=== PATIENT | female | born 1960 | race Two or more races ===

== ENCOUNTER 2017-10-06 09:28 | Inpatient (IN) | payer BC ==
[2017-10-06] VITALS (12 sets, daily range): BP systolic 126–149; BP diastolic 64–77
[~2017-10-06] VITALS: Ht 162.6 cm; Wt 80.3 kg
[2017-10-06] MEDS ORDERED: Thrombin 5000 units TOPIC ONE (10:22)
[2017-10-06] MEDS ORDERED: Vancomycin 1gm inj IVPB ONE (10:22)
[2017-10-06] MEDS ORDERED: Bacitracin 50000 Units Vial ONE (10:23)
[2017-10-06] MEDS ORDERED: Zemuron 50mg/5ml Inj IV ONE ×2 (10:26→12:00)
[2017-10-06] MEDS ORDERED: EPINEPHrine 1mg/1ml Amp ONE (10:40)
[2017-10-06] MEDS ORDERED: Gelfoam Absorbable 1gm powder pkt TOPIC ONE (10:41)
[2017-10-06] MEDS ORDERED: Bupivacaine 0.5% Inj 30 ml vial INJ ONE (10:41)
[2017-10-06] MEDS ORDERED: Thrombin 5000 units spray kit TOPIC ONE (10:41)
[2017-10-06] MEDS ORDERED: fentaNYL 100 mcg/2 mL IV ONE (10:47)
[2017-10-06] MEDS ORDERED: Lidocaine 1% Plain 30 ml INJ ONE (10:47)
[2017-10-06] MEDS ORDERED: Midazolam 2mg/2ml Inj ONE (10:47)
[2017-10-06] MEDS ORDERED: ESTRACE1 MG ORAL (10:53)
[2017-10-06] MEDS ORDERED: PAMELOR10 MG ORAL (10:54)
[2017-10-06] MEDS ORDERED: OMEPRAZOLE20 M2 ORAL (10:54)
[2017-10-06] MEDS ORDERED: Vit D3 PO (10:57)
[2017-10-06] MEDS ORDERED: ZYRTEC10 MG ORAL (10:58)
[2017-10-06] MEDS ORDERED: GABAPENTIN300 MG ORAL (10:59)
[2017-10-06] MEDS ORDERED: OXYBUTYNIN CHLO10 MG PO (10:59)
[2017-10-06] MEDS ORDERED: CYMBALTA20 MG ORAL (11:03)
--- NOTE | 2017-10-06 11:47 | Anethesia Preoperative Eval ---
Anesthesia Pre-op PMH/ROS General Date of Evaluation: October 06, 2017 Time of Evaluation: 11:40 Anesthesiologist: Luis ASA Score: ASA 3 Mallampati Score Class I : Soft palate, uvula, fauces, pillars visible Class II: Soft palate, uvula, fauces visible Class III: Soft palate, base of uvula visible Class IV: Only hard plate visible Mallampati Classification: Class II Surgeon: Gravory Diagnosis: Cervical radiculopathy Surgical Procedure: ACDF c5-6 C6-7 Anesthesia History: none Social History: current smoker Family History: no anesthesia problems Allergies: Coded Allergies: ADHESIVE TAPE (Verified Allergy, Intermediate, "bad rash", 10/06/17) Uncoded Allergies: transpore tape (Allergy, Severe, rash, 10/06/17) Past Medical History Cardiovascular: Denies: HTN, CAD, MD, valve dz, arrhythmia, other Pulmonary: Reports: asthma - mild; Denies: COPD, DEIDRE, other Gastrointestinal/Genitourinary: Reports: GERD, other - h/o diverticulitis s/p sigmoid resection; Denies: CRI, ESRD Neurologic/Psychiatric: Reports: depression/anxiety, other - chronic pain; Denies: dementia, CVA, TIA Endocrine: Denies: DM, hypothyroidism, steroids, other HEENT: Denies: cataract (L), cataract (R), glaucoma, [place] (L), [place] (R), other Hematology/Immune: Denies: anemia, DVT, bleeding disorder, other Musculoskeletal/Integumentary: Reports: DJD Other: other - overweight PMH Narrative: as above PSxH Narrative: R shoulder Sx replacement, cholecystectomy, hysterectomy, sigmoid resection, lumbar spine fusion, knee scopes Anesthesia Pre-op Phys. Exam Physician Exam Last Vital Signs Date Time Temp Pulse Resp B/P (MAP) Pulse Ox O2 Delivery O2 Flow Rate FiO2 10/06/17 10:45 97.1 73 20 132/76 99 Room Air 97.1 Constitutional: NAD Neurologic: CN 2-12 intact Cardiovascular: RRR, no M/R/G Respiratory: CTA Gastrointestinal: S/NT/ND Airway Exam Mallampati Score: Class II MO: full Neck: stiff ROM: limited Teeth: intact Dentures: no upper, no lower Anesthesia Pre-op A/P Labs see chart Accucheck 77 preoperatively Studies Pre-op Studies: EKG, CXR - WNL Risk Assessment & Plan Assessment: ASA 3 Plan: GA with ETT neuromonitoring Status Change Before Surgery: No Pre-Antibiotics Drug: Ancef 2 gr. Given Within 1 Hr of Incision: Yes Time Given: 12:20 Burt Smith MD October 06, 2017 11:47
[2017-10-06] MEDS ORDERED: Neostigmine 1mg/ml 10ml Inj ONE (12:00)
[2017-10-06] MEDS ORDERED: LR 1000ml ONE (12:00)
[2017-10-06] MEDS ORDERED: Glycopyrrolate 0.2mg/ml 1ml Vial ONE ×2 (12:00→12:57)
[2017-10-06] MEDS ORDERED: NS Irrig 1000ml ONE (12:00)
[2017-10-06] MEDS ORDERED: Succinylcholine 20mg/ml 10ml vial ONE (12:00)
[2017-10-06] MEDS ORDERED: Sterile Water Irrig 1000ml IRRIG ONE (12:00)
--- NOTE | 2017-10-06 12:02 | Pre-Procedure Note/Attestation ---
Pre-Procedure Note/Attestation Complete Prior to Procedure Planned Procedure: not applicable Procedure Narrative: C5-6-7 Discectomy and fusion Indications for Procedure Pre-Operative Diagnosis: Disc hernia C5-6-7 Attestation I attest that I discussed the nature of the procedure; its benefits; risks and complications; and alternatives (and the risks and benefits of such alternatives ), prior to the procedure, with the patient (or the patient's legal call center support representative). I attest that, if there was a reasonable possibility of needing a blood transfusion, the patient (or the patient's legal call center support representative) was given the [facility] standardized written summary, pursuant to the Enrrique Keesha Blood Safety Act ([place] Health and Safety Code # 1645, as amended). I attest that I re-evaluated the patient just prior to the surgery and that there has been no change in the patient's H&P, except as documented below: FRANCISCO ALEJANDRO October 06, 2017 12:02
[2017-10-06] MEDS ORDERED: Morphine Sulfate 10mg/ml Inj ONE (12:38)
[2017-10-06] MEDS ORDERED: Ketorolac 30mg Inj ONE (13:00)
[2017-10-06] MEDS ORDERED: LR 1000ml 1,000 ML IVLG SCH (13:06)
[2017-10-06] MEDS ORDERED: DiphenhydrAMINE 50mg/ml Inj IVP PRN (13:15)
[2017-10-06] MEDS ORDERED: Ketorolac 30mg Inj IV PRN (13:15)
[2017-10-06] MEDS ORDERED: Metoclopramide 10mg/2ml Inj IVP PRN (13:15)
[2017-10-06] MEDS ORDERED: Midazolam 2mg/2ml Inj IVP PRN (13:15)
[2017-10-06] MEDS ORDERED: fentaNYL 100 mcg/2 mL IV PRN (13:15)
[2017-10-06] MEDS ORDERED: Meperidine 50mg/ml Inj(FOR RIGORS ONLY) IV PRN (13:15)
[2017-10-06] MEDS ORDERED: Propofol 200mg/20ml IV ONE (14:42)
[2017-10-06] MEDS ORDERED: Nortriptyline 10mg cap ORAL PRN (15:15)
--- NOTE | 2017-10-06 16:03 | Brief Operative Note ---
Immediate Post Operative Note Operative Note Pre-op Diagnosis: Disc hernia C5-6-7 Procedure: C5-6-7 ACDF Post-op Diagnosis: SAME Post-op Diagnosis: same as pre-op Findings: consistent w/pre-op dx studies Surgeon: Chavo Lazo Driller Helper: Justine Sethi Anesthesia: general Specimen: yes - Disk Complications: none Fluids: Per Anesthesia Implant(s) used?: Yes - FRANCISCO Waddell October 06, 2017 16:03
--- NOTE | 2017-10-06 16:04 | Diagnostic Imaging Report ---
Indication: Bilateral upper extremity pain, intraoperative Technique: Intraoperative images Comparison: none Findings: Localizing image demonstrates surgical tool projecting anterior to the C6-7 disc. Subsequent images demonstrate anterior fusion hardware at C5-6 and C6-7. Impression: Intraoperative imaging, as described
--- NOTE | 2017-10-06 16:30 | Immediate Post-Op Evaluation ---
Immediate Post-Op Evalulation Immediate Post-Op Evalulation Procedure: ACDF C5-C6 C6-C7 Date of Evaluation: October 06, 2017 Time of Evaluation: 16:29 IV Fluids: 1500 Blood Products: none Estimated Blood Loss: 50 Urinary Output: 200 Blood Pressure Systolic: 132 Blood Pressure Diastolic: 74 Pulse Rate: 98 Respiratory Rate: 22 O2 Sat by Pulse Oximetry: 99 Temperature (Fahrenheit): 97.9 Pain Score (1-10): 3 Nausea: No Vomiting: No Complications none Patient Status: reacts, patent, extubated, none Hydration Status: adequate Burt Smith MD October 06, 2017 16:30
[2017-10-06] MEDS ORDERED: HYDROcodone/Acetamin 10/325 tab ORAL PRN (18:30)
[2017-10-06] MEDS ORDERED: LORazepam 0.5mg tab ORAL PRN (18:30)
[2017-10-06] MEDS ORDERED: Milk of Magnesia 30ml Ud ORAL PRN (18:30)
[2017-10-06] MEDS ORDERED: oxyCODONE 5mg IR tab ORAL PRN (18:30)
[2017-10-06] MEDS: Docusate 100mg cap ORAL SCH (18:54)
[2017-10-06] MEDS ORDERED: Chloraseptic Spray 20mL Bottle ORAL PRN (19:30)
[2017-10-06] MEDS ORDERED: Nortriptyline 25mg cap ORAL PRN (19:30)
[2017-10-06] MEDS ORDERED: Chloraseptic Spray 20mL Bottle ORAL ONE (19:30)
[2017-10-06] MEDS: ceFAZolin sod 1 GM in D5W 110 ML IV SCH (19:59)
[2017-10-06] MEDS: Oxybutynin 5mg tab ORAL SCH (20:00)
[2017-10-06] MEDS: Morphine Sulfate 4mg/ml Inj IM PRN (20:28)
[2017-10-07] VITALS: BP 128/61
[2017-10-07] MEDS: Morphine Sulfate 4mg/ml Inj IM PRN ×2 (02:18→06:14)
[2017-10-07 04:00] VITALS: BP 129/70
[2017-10-07] MEDS: ceFAZolin sod 1 GM in D5W 110 ML IV SCH ×2 (04:15→11:46)
[2017-10-07] MEDS ORDERED: oxyCODONE 5mg IR tab ORAL SCH (07:47)
[2017-10-07 08:00] VITALS: BP 118/59
--- NOTE | 2017-10-07 08:14 | 48 Hour Post Anesthesia Eval ---
Post Anesthesia Evaluation Procedure: ACDF C5-C6 C6-C7 Date of Evaluation: October 07, 2017 Time of Evaluation: 08:13 Blood Pressure Systolic: 124 0: 76 Pulse Rate: 72 Respiratory Rate: 22 Temperature (Fahrenheit): 97.6 O2 Sat by Pulse Oximetry: 99 Airway: patent Nausea: No Vomiting: No Pain Intensity: 3 Hydration Status: adequate Cardiopulmonary Status: stable Mental Status/LOC: patient returned to baseline Follow-up Care/Observations: n/a Post-Anesthesia Complications: none Follow-up care needed: N/A Burt Smith MD October 07, 2017 08:14
[2017-10-07] MEDS: Docusate 100mg cap ORAL SCH (08:33)
[2017-10-07] MEDS: Oxybutynin 5mg tab ORAL SCH (08:33)
[2017-10-07] MEDS ORDERED: PERCOCET 10-321 EACH ORAL ×3 (09:36→15:48)
--- NOTE | 2017-10-07 11:15 | Progress Note ---
DATE: 10/07/2017 ACUTE PAIN MANAGEMENT PHYSICIAN PROGRESS NOTE MEDICATIONS: Medication administration record reviewed. Medications include IV fluids, Colace, oxybutynin, Cymbalta, Protonix, antibiotics, and Neurontin. P.r.n. medications include Ativan, Benadryl, Catapres, Chloraseptic spray, [place], morphine, Zofran, Mylanta, Phenergan, oxycodone, milk of magnesia, Fioricet, Zyrtec, and Pamelor. LABORATORY STUDIES: No interval laboratory studies. OBJECTIVE: VITAL SIGNS: Within normal limits. Afebrile, pulse 80, respirations 18, blood pressure 129/70, and oxygen saturation 99% on supplemental oxygen. I saw the patient at the bedside with the overnight nurse RNIzabella. Also discussed the case with the charge nurse RNMaura, the day nurse RNSandi, hospital pharmacist, William, and the surgeon, Dr. Lazo, Dr. Lazo, clarified that he wishes the patient to have a rigid [place] collar. He recommended that the patient use the collar any time she is out of bed after her multilevel cervical spine fusion surgery. The patient is breathing comfortably this morning. She did well overnight using intramuscular morphine. She tolerated oxycodone without any adverse side effects. However, just stated that the oxycodone 5 mg did not seem to be strong enough. I doubled the dose to 10 mg and I have asked pharmacy to dose it presently. The patient will continue with her Neurontin along with her mood stabilizing agents including Cymbalta and Pamelor. The patient does have a rather flat affect. She lives at home with her , who will assist with activities of daily living. The patient has been swallowing and tolerating advancing diet without difficulty. She still complains of right shoulder pain, which is not unexpected after her multilevel cervical spine fusion surgery, in the context of her multiple right shoulder surgeries. I have left a prescription for Percocet 10 mg tablets and 75 for outpatient usage. The Chloraseptic spray bottle remains at the bedside for topical sore throat complaints. The patient denies any shortness of breath or chest pain. The patient has been compliant using her incentive spirometer. The indwelling cervical spine drain catheter overnight had minimal discharge from the Hemovac drain. With the nurse RN, Marcela at the bedside, I removed the cervical spine soft collar, which revealed the incision clean and dry. I removed the tape to show the cervical spine incision clean and dry. DuraBond Sealant was intact. There was no evidence for erythema or exudate. I cut the suture holding in the indwelling cervical spine drain catheter sterilely. With the Hemovac drain taken off of suction, end-expiration, I personally removed the indwelling cervical spine drain catheter. Alcohol pads were applied generously to the drain hole site. Sterile 2 x 2 gauze was then applied over the drain hole site and the incision line, followed by a sterile 4 x 5 Tegaderm op site. There were no complications. The soft collar was replaced, which will be replaced later by the [place] collar when the equipment is received. Dr. Lazo recommended that the patient discharge to home to her later today. Ash Babcock M.D. DR: APRIL JOB#: [id number] CC:
[2017-10-07 12:00] VITALS: BP 126/77
[2017-10-07] MEDS ORDERED: oxyCODONE 5mg IR tab ORAL PRN (12:00)
--- NOTE | 2017-10-07 12:45 | Consultation ---
DATE OF CONSULTATION: DATE OF CONSULTATION: 10/06/2017 CONSULTING PHYSICIAN: Ash Babcock M.D. REFERRING PHYSICIAN: Gayathri Lazo M.D. REASON FOR CONSULTATION: Acute pain consult. HISTORY OF PRESENT ILLNESS: Dear Dr. Lazo, Thank you kindly for consulting me to evaluate and render an opinion as to how to proceed in the management of the acute postoperative cervical spine pain, status post multiple level cervical spine fusion surgery with instrumentation. The patient is a 57-year-old obese woman with a long history of chronic neck and shoulder pain. I saw the patient at bedside where I performed a detailed history and physical examination. I made the following recommendations to help her postoperative comfort and help expedite her hospital discharge. PAST MEDICAL HISTORY: 1. Acute postoperative cervical spine pain, status post multiple level cervical spine fusion surgery with instrumentation by Dr. Gayathri Lazo on 10/06/2017. 2. Obesity. 3. Chronic pain syndrome. 4. Insomnia, gastroesophageal reflux disease, bladder dysfunction, obstructive sleep apnea, history of rheumatic fever, migraine headaches, and asthma. PAST SURGICAL HISTORY: Multiple right shoulder surgeries over the past two years. Anterior cruciate ligament repair, toe surgery, gallbladder surgery, colon resection, hysterectomy, carpal tunnel, knee arthroscopy, and anterior cruciate ligament repair. FAMILY HISTORY: Diabetes and obesity. SOCIAL HISTORY: The patient lives with her 2 adult children and . MEDICATIONS: At home, estradiol, oxybutynin, Prilosec, Cymbalta, nortriptyline, Neurontin, and vitamin D. REVIEW OF SYSTEMS: Per attending physician. ALLERGIES: Adhesive tape. PHYSICAL EXAMINATION: VITAL SIGNS: Age 57, height 5 feet 5 inches, weight 178 pounds. Body mass index 30. Vital signs, pulse 92, respirations 20, blood pressure 145/69, oxygen saturation 100% on supplemental oxygen. HEENT: Shows swallowing, breathing, and phonating within normal limits. EXTREMITIES: Moving all her extremities x4. Significant pain in the right shoulder. The patient does have a history of multiple previous right shoulder surgeries. Good satin finisher strength bilaterally. NEUROLOGIC: Detailed neurologic exam per Dr. Lazo. CHEST: Clear to auscultation. HEART: Regular rate and rhythm. ABDOMEN: Soft, moderately obese. BREASTS: Deferred. GENITOURINARY: Deferred. LABORATORY AND DIAGNOSTIC DATA: Diagnostic testing shows labs from 09/2017 with a white count 9, hematocrit 42, and platelets 274. Glucose 110, BUN 18, creatinine 0.8, sodium 138, potassium 4.1, chloride 104, bicarb 24, calcium 9.8. Total protein 7.1, albumin 4.6. Alkaline phosphatase 104, ALT 7, AST 12, total bilirubin 0.5. Urinalysis negative. A 12-lead EKG shows normal sinus rhythm, ventricular rate 75, no evidence for acute cardiac ischemia. Preoperative chest x-rays shows no acute cardiopulmonary disease, 09/24/2017. IMPRESSION: 1. Acute postoperative cervical spine pain, status post multiple level cervical spine fusion surgery with instrumentation by Dr. Gaytahri Lazo on 10/06/2017. 2. Obesity. 3. Chronic pain syndrome. 4. Insomnia, gastroesophageal reflux disease, bladder dysfunction, obstructive sleep apnea, rheumatic history of rheumatic fever, migraine headaches, and asthma. TREATMENT AND RECOMMENDATIONS: I spoke with the hospital pharmacist, William. I have placed the patient on a breakthrough intramuscular dose of morphine 4 mg q.3 hours p.r.n. for severe pain. I have ordered p.r.n. dose of Ativan 0.5 mg q.6 hours in case of any anxiety or spasms. I have restarted the patient's multiple anxiolytic medications including Cymbalta, Pamelor, and Neurontin. I asked the nursing team to place Chloraseptic spray bottle at the bedside to help with topical sore throat complaints. I have ordered a dose of Fioricet one tablet orally every 8 hours in case of any headache complaints. The patient has a history of migraine headaches. I will place the patient on Protonix 40 mg q.12 hours for her chronic gastroesophageal reflux disease condition. I have also added p.r.n. dose of Mylanta 30 mL q.6 hours in case of any GERD symptom exacerbation. I have placed the patient on Zofran 4 mg intravenously q.4 hours p.r.n. for nausea. I have also ordered a dose of Benadryl for any itching complaints. Due to the patient's obesity, I have ordered incentive spirometer to encourage good pulmonary toilet. The patient will receive a sequential compression pneumatic devices for DVT prophylaxis. Ash Babcock M.D. DR: FLAKITA JOB#: [id number] CC:
--- NOTE | 2017-10-07 23:45 | Discharge Summary ---
DATE OF ADMISSION: 10/06/2017 DATE OF DISCHARGE: 10/07/2017 ATTENDING PHYSICAN AND SURGEON: Gayathri Lazo M.D. [employer] PRINCIPAL SURGEON: Cris Sethi M.D. CONSULTING PHYSICIAN: Ash Babcock M.D., Pain Management. ADMITTING DIAGNOSIS: Herniated cervical disc C5-C6 and C6-C7. POSTOPERATIVE DIAGNOSIS: Herniated cervical disc C5-C6 and C6-C7, status post multi-level anterior cervical discectomy and fusion C5-C6 and C6-C7. HOSPITAL COURSE: The patient was admitted on 10/06/2017 for elective cervical spine surgery. The patient underwent surgery without any complications and was transferred from the operating room to the recovery room without incident. The patient was stable in the recovery room and was transferred to the orthopedic floor without complications. Serial vital signs and monitoring were provided. The patient did well overnight. The indwelling cervical spine drain catheter was removed. The patient advanced her diet, ambulated, and voided urine without difficulties. The patient was provided prescription for Percocet for outpatient usage and plan was discharged to home in the care of her with instructions to follow up with the surgeon, Dr. Lazo per his office appointment. Ash Babcock M.D. DR: [place]/FINA JOB#: [id number] CC:
== END 2017-10-07 15:30 | disposition home or self-care (01) | DRG 473 ==
LOC: SDS 09:28 → EDSTATUS 11:00 → 3E 17:51
DX: M50.122 Cervical disc disorder at C5-C6 level with radiculopathy (principal); M48.02 Spinal stenosis, cervical region; J45.909 Unspecified asthma, uncomplicated; G89.4 Chronic pain syndrome; K21.9 Gastro-esophageal reflux disease without esophagitis; G47.33 Obstructive sleep apnea (adult) (pediatric); G47.00 Insomnia, unspecified; E66.9 Obesity, unspecified; F17.200 Nicotine dependence, unspecified, uncomplicated
CPT/HCPCS: 36415; 72040; 76001; 82962; 86850; 86900; 86901; 87081; 94003; 94150; J2250; J2405; J2710